=== PATIENT | male | born 1965 | race Caucasian/White ===

== ENCOUNTER 2021-09-21 05:56 | Emergency (ER) | payer MEDICARE, SELFPAY ==
[2021-09-21 06:02] VITALS: BP 110/73; PULSE 72; RESP 18; TEMP 36.4; O2SAT 97; BMI 25.6
--- NOTE | 2021-09-21 06:08 | ECG_ITS ---
[facility] Test Date: 2021-09-21 Pat Name: Gurdeep Tobin Department: Room: Gender: Male Fine Hairer: : 1965 Requested By: Jw Hubbard Order Number: [id number] Recinos MD: Ron Juarez M.D. Measurements Intervals [place] Rate: 79 P: 34 [place]: 164 QRS: -14 QRSD: 97 T: 52 QT: 374 QTc: 430 Interpretive Statements SINUS RHYTHM POSSIBLE RIGHT VENTRICULAR CONDUCTION DELAY [RSR (QR) IN V1/V2] No previous ECG available for comparison Electronically Signed On 09-23-2021 17:29:43 RADIO MAINTAINER by Ron Juarez M.D. [id number]
--- NOTE | 2021-09-21 06:21 | ED_ITS ---
HPI - General Adult General: Chief complaint: Nausea/Vomiting/Diarrhea Stated complaint: n/v, sweats, weak x 6 days Time Seen by Provider: 09/21/21 06:08 History of Present Illness: HPI narrative: Patient is a 56-year-old male with history of degenerative disc disease, rotator cuff injuries on oxycodone presenting to the emergency room for complaints of nausea/vomiting/diarrhea generalized weakness x1 week. Patient went to see his primary care provider and [place] and was diagnosed with migraine headache. Curently, patient patient reprots mild R sided parietal headache which started around the same time as the diarrhea, nausea/vomiting, and decreased p.o. intake 1week ago. Patient has no complaints of abdominal pain. Patient says he has been feeling tired weak all week. In addition, on Thursday, patient felt lightheaded almost passed out. Patient had mild shortness of breath and chest pain associated with that episode. No cardiac history, no family history of cardiac disease. Patient denies smoking, diabetes, hypertension, or hyperlipidemia at this time. Onset: 1 week ago Duration:1 week Location:home Severity:moderate Review of Systems Narrative: Constitutional: No fever, no chills. HEENT: No vision changes CV: No chest pain, no palpitations PULM: no cough, no dyspnea. GI: No abdominal pain, +N/+V/+D. +decreased PO intake : No dysuria MSKEL: No muscle pain SKIN: No new rashes, no lesions. NEURO: No headache, no focal weakness. +generalized weakness HEME: No visible bruises PSYCH: Normal mood PFSH ED PFSH: Medical History Arthritis Cardiac arrhythmia, unspecified Chronic GERD Chronic pain DDD (degenerative disc disease) HTN (hypertension) Kidney stone on right side Social History Smoking and tobacco status: current every day smoker Marital status: Physical Exam Narrative: EXAM NARRATIVE: Head: Atraumatic Eyes: PERRL, conjunctiva without injection ENT: Mucous membrane moist NECK: Supple, ROM intact LUNGS: LCTAB, no crackles/rhonchi CV: RRR ABDOMEN: Soft, no focal TTP. NO guarding rebound, guarding, rigidity. No CVA tenderness to percussion. Neg Estevez/Neg McBurney's point tenderness, no suprabupic tenderness to palpation. EXTREMITY: Normal ROM SKIN: No rash or erythema NEURO: Awake and alert, no focal motor deficits PSYCH: Normal mood and affect Course Vital Signs: Vital signs: Vital Signs Temperature 97.6 F 09/21/21 08:15 Pulse Rate 69 09/21/21 09:16 Respiratory Rate 16 09/21/21 09:16 Blood Pressure 109/64 09/21/21 09:16 Pulse Oximetry 98 09/21/21 09:16 MDM - General Adult MDM Narrative: Medical decision making narrative: 56-year-old male presenting to the emergency for generalized weakness, nausea/vomiting/diarrhea x1 week. Patient is Covid positive today. Patient is a candidate for BAM infusion. Disposition: Discharge. Patient counseled regarding diagnostic impression, t reatment plan. Patient given ED strict return precautions to return for continuation, worsening, or development of new symptoms. Instructed to f/u w/ PCP regarding symptoms today. Patient verbalized understanding. Lab Data: Labs: Lab Results 09/21/21 09/21/21 09/21/21 06:25 06:25 06:25 WBC 4.7 10^3/uL 10^3/ uL (4.0-10.0) RBC 5.12 10^6/uL 10^6 /uL (4.1-5.3) Hgb 15.9 g/dL g/dL (11.7-16.6) Hct 46.5 % % (42.0-52.0) MCV 90.8 fl fl (80-94) MCH 31.1 pg pg (28.0-34.0) MCHC 34.2 g/dL g/dL (30.0-36.0) RDW 12.3 % % (12.1-15.1) Plt Count 146 10^3/cmm 10^3 /cmm (130-400) MPV 10.2 fL fL (7.4-10.4) Neut % (Auto) 79.9 % % Lymph % (Auto) 11.4 % % [place] % (Auto) 8.1 % % Eos % (Auto) 0.0 % % Baso % (Auto) 0.2 % % Neut # (Auto) 3.77 10^3/uL 10^3 /uL (1.8-7.7) Lymph # (Auto) 0.5 10^3/uL L 10^ 3/uL (0.8-4.8) [place] # (Auto) 0.4 10^3/uL 10^3/ uL (0.2-0.9) Eos # (Auto) 0.0 10^3/uL 10^3/ uL (0.0-0.8) Baso # (Auto) 0.0 10^3/uL 10^3/ uL (0.0-0.1) Nucleated RBC % (a uto) 0 % % Nucleated RBCs # 0.0 /100WBC /100W BC Sodium 135 mmol/L L mmol /L (136-145) Potassium 4.5 mmol/L mmol/L (3.5-5.1) Chloride 98 mmol/L mmol/L (98-107) Carbon Dioxide 20 mmol/L L mmol/ L (22-29) Anion Gap 21.5 H (5-19) BUN 23 mg/dL H mg/dL (6-20) Creatinine 1.1 mg/dL mg/dL (0.7-1.2) GFR Calculation 68.8 mL/min L mL/ min (90-130) Glucose 112 mg/dL mg/dL (65-115) Calculated Osmolal ity 284 mOsm/kg L mOs m/kg (285-295) Calcium 8.5 mg/dL mg/dL (8.5-10.5) Total Bilirubin 0.4 mg/dL mg/dL (0.15-1.2) AST 36 U/L U/L (0-40) ALT 27 U/L U/L (0-41) Alkaline Phosphata se 61 IU/L IU/L (40-130) Troponin T Gen 5 n g/L 9 ng/L ng/L (0-15) Total Protein 6.8 g/dL g/dL (6.6-8.7) Albumin 4.4 g/dL g/dL (3.5-5.2) Globulin 2.4 g/dL g/dL (1.3-4.6) Lipase 14 U/L U/L (13-60) Influenza Type A A g Influenza Type B A g SARS-CoV-2 Ag (Rap id) 09/21/21 09/21/21 06:25 06:25 WBC RBC Hgb Hct MCV MCH MCHC RDW Plt Count MPV Neut % (Auto) Lymph % (Auto) [place] % (Auto) Eos % (Auto) Baso % (Auto) Neut # (Auto) Lymph # (Auto) [place] # (Auto) Eos # (Auto) Baso # (Auto) Nucleated RBC % (a uto) Nucleated RBCs # Sodium Potassium Chloride Carbon Dioxide Anion Gap BUN Creatinine GFR Calculation Glucose Calculated Osmolal ity Calcium Total Bilirubin AST ALT Alkaline Phosphata se Troponin T Gen 5 n g/L Total Protein Albumin Globulin Lipase Influenza Type A A g Negative (Negative) Influenza Type B A g Negative (Negative) SARS-CoV-2 Ag (Rap id) Positive H (Negative) Discharge Plan Discharge Patient Disposition: Home Clinical Impression: Nausea & vomiting, Diarrhea, Generalized weakness, COVID Condition: Stable Prescriptions: New Zofran 4 mg tablet 4 mg PO TID PRN (Reason: nausea and vomiting) 4 Days Qty: 12 RF: 0 Pepcid 20 mg tablet 20 mg PO BID PRN (Reason: abdominal pain) 10 Days Qty: 20 RF: 0 Maalox Advanced 1,000-60 mg tablet,chewable 1 tab PO TID PRN (Reason: abdominal pain) 7 Days Qty: 21 RF: 0 No Action iwmpgei-iuxo-iwonw-oreg-capryl PO RF: 0 tizanidine 4 mg tablet 8 mg PO BID RF: 0 hydrocodone-acetaminophen 10-325 mg tablet 1 tab PO .NOON RF: 0 oxycodone 10 mg tablet 10 mg PO BID RF: 0 metoprolol tartrate 25 mg tablet 25 mg PO BID RF: 0 gabapentin 300 mg capsule 300 mg PO BID RF: 0 duloxetine 60 mg capsule,delayed release(DR/EC) 60 mg PO DAILY RF: 0 pantoprazole 40 mg tablet,delayed release (DR/EC) 40 mg PO DAILY RF: 0 prednisone 20 mg tablet 40 mg PO DAILY 5 Days Qty: 10 RF: 0 Discharge Orders: Discharge ED (Routine); Ordered 09/21/21 Ordered By: Jw Hubbard Referrals: Enmanuel Bergman MD [Primary Care Provider] - Discharge Diet: Advance as tolerated Discharge Activity: Resume usual activity Patient Instructions: Acute Diarrhea (ED), COVID-19 (Coronavirus Disease 2019) (ED) Activity Restrictions/Additional Instructions: Come back to the emergency room if your symptoms worsen, have any shortness of breath, fever/chills, dehydration, inability tolerate p.o., any difficulty breathing, or any new or concerning complaints. Coding Level of Care Code ED Self Defense Instructor for Karen Foster
[2021-09-21 06:51] LABS: Basophils % 0.2 %; Hematocrit 46.5 % (42.0-52.0); Hemoglobin 15.9 g/dL (11.7-16.6); Lymphocytes # 0.5 10^3/uL (0.8-4.8); Lymphocytes % 11.4 %; Mean Corpuscular HGB Conc 34.2 g/dL (30.0-36.0); Mean Corpuscular Hemoglobin 31.1 pg (28.0-34.0); Mean Corpuscular Volume 90.8 fl (80-94); Mean Platelet Volume 10.2 fL (7.4-10.4); Monocytes # 0.4 10^3/uL (0.2-0.9); Monocytes % 8.1 %; Neutrophils # 3.77 10^3/uL (1.8-7.7); Neutrophils % 79.9 %; Nucleated Red Blood Cells % 0 %; Platelet Count 146 10^3/cmm (130-400); Red Blood Count 5.12 10^6/uL (4.1-5.3); Red Cell Distribution Width 12.3 % (12.1-15.1); White Blood Count 4.7 10^3/uL (4.0-10.0)
[2021-09-21] MEDS: sodium chloride 0.9% 1,000 ML 999 ML IV ×2 (06:53→07:15)
[2021-09-21] MEDS: ketorolac 30 mg/mL INJ IVP (06:54)
[2021-09-21] MEDS: acetaminophen-codeine 300-30mg Tablet 1 TAB PO (06:54)
[2021-09-21] MEDS: ondansetron 2 mg/ML SDV 2 mL 4 MG IVP (06:54)
[2021-09-21 07:03] LABS: Alanine Aminotransferase 27 U/L (0-41); Albumin Level 4.4 g/dL (3.5-5.2); Alkaline Phosphatase 61 IU/L (40-130); Anion Gap 21.5 (5-19); Aspartate Amino Transferase 36 U/L (0-40); Blood Urea Nitrogen 23 mg/dL (6-20); Calcium 8.5 mg/dL (8.5-10.5); Carbon Dioxide 20 mmol/L (22-29); Chloride 98 mmol/L (98-107); Globulin 2.4 g/dL (1.3-4.6); Glomerular Filtration Rate 68.8 mL/min (90-130); Glucose 112 mg/dL (65-115); Lipase 14 U/L (13-60); Osmolality Calculated 284 mOsm/kg (285-295); Potassium 4.5 mmol/L (3.5-5.1); Sodium 135 mmol/L (136-145); Total Bilirubin 0.4 mg/dL (0.15-1.2); Total Protein 6.8 g/dL (6.6-8.7); Troponin T (5th) Once 9 ng/L (0-15)
[2021-09-21 07:15] LABS: Influenza A by IFA Negative (Negative); Influenza B by IFA Negative (Negative); SARS Covid-2 Antigen Positive (Negative)
[2021-09-21 08:15] VITALS: BP 110/64; PULSE 77; TEMP 36.4; O2SAT 96
[2021-09-21 08:40] VITALS: PULSE 74; O2SAT 94
[2021-09-21 09:16] VITALS: BP 109/64; PULSE 69; RESP 16; O2SAT 98
--- NOTE | 2021-09-24 09:46 | DCPLANNER ---
workshop manager had message to schedule an outpatient monoclonal infusion for patient. workshop manager faxed signed order to centralized scheduling. Centralized scheduling called disability case manager about the order. workshop manager was told that they are unable to schedule an infusion in the time frame that it needs to be scheduled. workshop manager called phone number [phone], to inform patient that the infusion would not be able to be scheduled at this time. workshop manager unable to speak with patient, and unable to leave a voicemail for patient.
== END 2021-09-21 09:17 | disposition home or self-care (01) ==
PROVIDERS: Emergency Provider Emergency Medicine; PCP Family Medicine Adult Medicine
DX: U07.1 COVID-19 (principal); I10 Essential (primary) hypertension; F17.210 Nicotine dependence, cigarettes, uncomplicated
CPT/HCPCS: 80053; 83690; 84484; 85025; 87426; 87804; 93005; 96365; 96375; 99284; J1885; J2405; J7030